=== PATIENT | female | born 1960 | race Two or more races ===

== ENCOUNTER → 2022-01-31 | Outpatient (CLI) | payer OTHER ==
[~2022-01-31] MED LIST: GADOTERATE MEGLUMINE 10 MMOL/20 ML VIAL IVP ONE
== END | disposition home or self-care (01) ==
LOC: RADMN 09:00
PROVIDERS: ATTEND Internal Medicine Cardiovascular Disease
DX: G91.9 Hydrocephalus, unspecified (principal); R90.82 White matter disease, unspecified; J34.89 Other specified disorders of nose and nasal sinuses; R29.818 Other symptoms and signs involving the nervous system
CPT/HCPCS: 70553; A9575